=== PATIENT | female | born 1980 | race African-American/Black ===

== ENCOUNTER 2022-05-25 17:55 | Emergency (ER) | payer OTHER ==
[~2022-05-25] VITALS: Ht 162.6 cm; Wt 79.4 kg
--- NOTE | 2022-05-26 07:29 | EKG ---
[facility] [address] [facility] [place], [place] [address] Signed Normal sinus rhythm Normal ECG No previous ECGs available Confirmed by HALIE SWANSON MD ([id number] on 05/26/2022 7:29:20 AM Electronically Signed By: HALIE SWANSON MD 05/26/22 0729 PATIENT NAME: AUTUMN GARZA Electrocardiogram DATE OF : 76 PHYSICIAN: HALIE SWANSON MD REPORT #: [id number] REPORT IS CONFIDENTIAL AND NOT TO BE RELEASED WITHOUT AUTHORIZATION
== END 2022-05-25 21:21 | disposition home or self-care (01) ==
LOC: ED 17:55
DX: R07.89 Other chest pain (principal); Z91.011 Allergy to milk products; Z88.8 Allergy status to other drugs, medicaments and biological substances
CPT/HCPCS: 36415; 71045; 80053; 83735; 84484; 85025; 93005; 93010; 99285-25